=== PATIENT | male | born 1985 | race Caucasian/White ===

== ENCOUNTER 2020-12-27 07:30 | Emergency (ER) | payer SELFPAY ==
[2020-12-27 08:43] LABS: Absolute Lymphocytes (CBC) 1.5 K/uL (0.7-4.9); Basophils % 0.5 % (0-1.3); Hematocrit 45.5 % (39.6-49.0); Lymphocytes % 22.5 % (15.3-44.8); MPV 8.1 fL (7.6-11.3); RBC Red Blood Cell Count 5.12 M/uL (4.33-5.43)
[2020-12-27] MEDS ORDERED: ONDANSETRON 4 MG/2 ML VIAL ONE (08:43)
[2020-12-27] MEDS ORDERED: NA CHLORIDE 0.9% 1,000 ML ONE (08:43)
[2020-12-27 08:46] LABS: Potassium 3.8 mmol/L (3.5-5.1)
--- NOTE | 2020-12-27 09:22 | ER ---
Nurse's Notes [facility] Name: Rudolph Rizo Age: 35 yrs Sex: Male : 1985 Arrival Date: 12/27/2020 Time: 07:31 Bed 11 Private MD: Diagnosis: Heat exhaustion, unspecified Presentation: 12/27 07:46 Chief complaint: Patient states: generalized muscle cramps and fatigue that began ss yesterday after working outside all day. Pt believes he has heat stress. Coronavirus screen: Client denies travel out of the [place] in the last 14 days. Ebola Screen: Patient denies exposure to infectious person. Patient denies travel to an Ebola-affected area in the 21 days before illness onset. Initial Sepsis Screen: Does the patient meet any 2 criteria? No. Patient's initial sepsis screen is negative. Does the patient have a suspected source of infection? No. Patient's initial sepsis screen is negative. Risk Assessment: Do you want to hurt yourself or someone else? Patient reports no desire to harm self or others. Onset of symptoms was December 26, 2020. 07:46 Method Of Arrival: Ambulatory ss 07:46 Acuity: JENELLE 3 ss Historical: - Allergies: 07:47 Codeine; ss - Home Meds: 07:47 None [Active]; ss - PMHx: 07:47 None; ss - PSHx: 07:47 None; ss - Immunization history:: Client reports having NOT received the Covid vaccine. - Social history:: Smoking status: Patient reports the use of cigarette tobacco products, smokes one pack cigarettes per day. Screenin:48 Abuse screen: Denies threats or abuse. Denies injuries from another. Nutritional ss screening: No deficits noted. Tuberculosis screening: Never had TB. Fall Risk None identified. Assessment: 08:24 General: Appears in no apparent distress. uncomfortable, Behavior is calm, cooperative, jl7 appropriate for age. Vital Signs: 07:46 BP 136 / 82; Pulse 74; Resp 16; Temp 97.7(TE); Pulse Ox 100% on R/A; Weight 83.91 kg; ss Height 5 ft. 11 in. (180.34 cm); Pain 0/10; 07:46 Body Mass Index 25.80 (83.91 kg, 180.34 cm) ss ED Course: 07:31 Patient arrived in ED. ds1 07:46 Bradley Simon MD is Attending Physician. kdr 07:47 Triage completed. ss 07:47 Arm band placed on right wrist. ss 07:48 Patient has correct armband on for positive identification. ss 08:13 Rafia Plunkett, RN is Primary Nurse. jl7 09:38 No provider procedures requiring assistance completed. IV discontinued, intact, ss bleeding controlled, No redness/swelling at site. Pressure dressing applied. Administered Medications: 08:24 Drug: NS 0.9% 1000 ml Route: IV; Rate: 1 bolus; Site: left antecubital; jl7 09:37 Follow up: IV Status: Completed infusion; IV Intake: 1000ml ss 08:24 Drug: Zofran (Ondansetron) 4 mg Route: IVP; Site: left antecubital; hb 09:37 Follow up: Response: No adverse reaction ss Intake: 09:37 IV: 1000ml; Total: 1000ml. Outcome: 09:22 Discharge ordered by . kdr 09:38 Discharged to home ambulatory. ss 09:38 Condition: good 09:38 Discharge instructions given to patient, Instructed on discharge instructions, follow up and referral plans. Demonstrated understanding of instructions, follow-up care, Prescriptions given X 1. 09:38 Patient left the ED. Signatures: Bradley Simon MD MD [facility] Annmarie Love ds1 Cher Koch RN RN Arely Lopez RN RN Rafia Plunkett, YOLANDA RN jl7 Corrections: (The following items were deleted from the chart) 07:47 07:47 Allergies: No Known Allergies; ss ss
--- NOTE | 2020-12-27 09:23 | EDPHYS ---
Physician Documentation [facility] Name: Rudolph Rizo Age: 35 yrs Sex: Male : 1985 Arrival Date: 12/27/2020 Time: 07:31 Bed 11 Private MD: ED Physician Bradley Simon HPI: 12/27 08:15 This 35 yrs old Male presents to ER via Ambulatory with complaints of kdr Cramping all over- Poss Heat Stroke. 08:15 Patient states that he was working outside yesterday doing very strenuous activity. kdr About 4 years ago he had a similar episode of heat stroke. He states he feels similar to that episode. He states that since he had that experience, he has had more difficulty managing heat situations. Onset: The symptoms/episode began/occurred yesterday. Severity of symptoms: At their worst the symptoms were mild moderate just prior to arrival, in the emergency department the symptoms are unchanged. The patient has experienced a previous episode. The patient has not recently seen a physician. He states that yesterday he drank 1 large Gatorade and some water. Last evening he tried to drink a lot of fluid replenishment this morning still awoke with the cramping. Historical: - Allergies: 07:47 Codeine; ss - Home Meds: 07:47 None [Active]; ss - PMHx: 07:47 None; ss - PSHx: 07:47 None; ss - Immunization history:: Client reports having NOT received the Covid vaccine. - Social history:: Smoking status: Patient reports the use of cigarette tobacco products, smokes one pack cigarettes per day. ROS: 08:15 Constitutional: Negative for fever, chills, and weight loss, Eyes: Negative for injury, kdr pain, redness, and discharge, ENT: Negative for injury, pain, and discharge, Neck: Negative for injury, pain, and swelling, Cardiovascular: Negative for chest pain, palpitations, and edema, Respiratory: Negative for shortness of breath, cough, wheezing, and pleuritic chest pain, Abdomen/GI: Negative for abdominal pain, nausea, vomiting, diarrhea, and constipation, Back: Negative for injury and pain, : Negative for injury, bleeding, discharge, and swelling, Skin: Negative for injury, rash, and discoloration, Neuro: Negative for headache, weakness, numbness, tingling, and seizure activity. Psych: Negative for depression, anxiety, suicide ideation, homicidal ideation, and hallucinations, Allergy/Immunology: Negative for hives, rash, and allergies, Endocrine: Negative for neck swelling, polydipsia, polyuria, polyphagia, and marked weight changes, Hematologic/Lymphatic: Negative for swollen nodes, abnormal bleeding, and unusual bruising. 08:15 MS/extremity: Positive for Patient has generalized myalgias and arthralgias. Exam: 08:15 Constitutional: This is a well developed, well nourished patient who is awake, alert, kdr and in no acute distress. Head/Face: Normocephalic, atraumatic. Eyes: Pupils equal round and reactive to light, extra-ocular motions intact. Lids and lashes normal. Conjunctiva and sclera are non-icteric and not injected. Cornea within normal limits. Periorbital areas with no swelling, redness, or edema. Neck: Trachea midline, no thyromegaly or masses palpated, and no cervical lymphadenopathy. Supple, full range of motion without nuchal rigidity, or vertebral point tenderness. No Meningismus. Chest/axilla: Normal chest wall appearance and motion. Nontender with no deformity. No lesions are appreciated. Cardiovascular: Regular rate and rhythm with a normal S1 and S2. No gallops, murmurs, or rubs. Normal PMI, no JVD. No pulse deficits. Respiratory: Lungs have equal breath sounds bilaterally, clear to auscultation and percussion. No rales, rhonchi or wheezes noted. No increased work of breathing, no retractions or nasal flaring. Abdomen/GI: Soft, non-tender, with normal bowel sounds. No distension or tympany. No guarding or rebound. No evidence of tenderness throughout. Back: No spinal tenderness. No costovertebral tenderness. Full range of motion. Skin: Warm, dry with normal turgor. Normal color with no rashes, no lesions, and no evidence of cellulitis. MS/ Extremity: Pulses equal, no cyanosis. Neurovascular intact. Full, normal range of motion. Neuro: Awake and alert, GCS 15, oriented to person, place, time, and situation. Cranial nerves II-XII grossly intact. Motor strength 5/5 in all extremities. Sensory grossly intact. Cerebellar exam normal. Normal gait. Psych: Awake, alert, with orientation to person, place and time. Behavior, mood, and affect are within normal limits. Vital Signs: 07:46 BP 136 / 82; Pulse 74; Resp 16; Temp 97.7(TE); Pulse Ox 100% on R/A; Weight 83.91 kg; ss Height 5 ft. 11 in. (180.34 cm); Pain 0/10; 07:46 Body Mass Index 25.80 (83.91 kg, 180.34 cm) MDM: 08:15 Data reviewed: vital signs, nurses notes, lab test result(s). Counseling: I had a kdr detailed discussion with the patient and/or guardian regarding: the historical points, exam findings, and any diagnostic results supporting the discharge/admit diagnosis, lab results, the need for outpatient follow up. 09:22 Patient medically screened. kdr 12/27 08:06 Order name: CBC with Diff; Complete Time: 09:03 kdr 12/27 08:06 Order name: Chem 7; Complete Time: 09:03 kdr 12/27 08:06 Order name: CPK; Complete Time: 09:03 kdr Administered Medications: 08:24 Drug: NS 0.9% 1000 ml Route: IV; Rate: 1 bolus; Site: left antecubital; jl7 09:37 Follow up: IV Status: Completed infusion; IV Intake: 1000ml 08:24 Drug: Zofran (Ondansetron) 4 mg Route: IVP; Site: left antecubital; hb 09:37 Follow up: Response: No adverse reaction ss Disposition Summary: 12/27/20 09:22 Discharge Ordered Location: Home kdr Problem: new kdr Symptoms: have improved kdr Condition: Stable kdr Diagnosis - Heat exhaustion, unspecified kdr Followup: kdr - With: Private Physician - When: 2 - 3 days - Reason: If symptoms return, Further diagnostic work-up, Recheck today's complaints, Continuance of care, Re-evaluation by your physician Discharge Instructions: - Discharge Summary Sheet kdr - Heat Exhaustion kdr - Preventing Heat Exhaustion, Adult kdr Forms: - Medication Reconciliation Form kdr - Thank You Letter kdr - Work release form eb Prescriptions: - Zofran 4 mg Oral Tablet - take 1 tablet by ORAL route every 12 hours As needed; 12 tablet; Refills: 0, kdr Product Selection Permitted Signatures: Dispatcher [employer] EDWV Bradley Simon MD MD [facility] Cher Koch RN RN ss Arely Lopez RN RN Rafia Plunkett RN RN jl7 Corrections: (The following items were deleted from the chart) 07:47 07:47 Allergies: No Known Allergies; [facility]
[2020-12-27 09:44] VITALS: BP 136/82; TEMP 97.7; O2SAT 100
== END 2020-12-27 09:38 | disposition home or self-care (01) ==
LOC: ER 07:30
DX: T67.5XXA Heat exhaustion, unspecified, initial encounter (principal); F17.210 Nicotine dependence, cigarettes, uncomplicated; Z88.5 Allergy status to narcotic agent
CPT/HCPCS: 36415; 80048; 82550; 85025; 96361; 96374; 99283; J2405; J7030

== ENCOUNTER 2024-02-17 01:20 | Emergency (ER) | payer SELFPAY ==
[2024-02-17] MEDS ORDERED: KETOROLAC 30 MG/ML INJ ONE (02:16)
--- NOTE | 2024-02-17 04:06 | ER ---
Nurse's Notes [facility] Name: Rudolph Rizo Age: 38 yrs Sex: Male : 1985 Arrival Date: 02/17/2024 Time: 01:20 Bed 5 Private MD: Yosvany Reeder Diagnosis: Strain of muscle(s) and tendon(s) of the rotator cuff of left shoulder Presentation: 02/16 01:41 Chief complaint: Patient states: left shoulder pain X4 days and worsening. pain 7/10. Coronavirus screen: Client denies travel out of the [place] in the last 14 days. At this time, the client does not indicate any symptoms associated with coronavirus-19. Ebola Screen: No symptoms or risks identified at this time. Initial Sepsis Screen: Does the patient meet any 2 criteria? No. Patient's initial sepsis screen is negative. Does the patient have a suspected source of infection? No. Patient's initial sepsis screen is negative. Risk Assessment: Do you want to hurt yourself or someone else? Patient reports no desire to harm self or others. Onset of symptoms is unknown. 01:41 Method Of Arrival: Ambulatory 01:41 Acuity: JENELLE 4 Triage Assessment: 01:42 General: Appears in no apparent distress. comfortable, Behavior is calm, cooperative. Pain: Complains of pain in left shoulder Pain does not radiate. Pain currently is 7 out of 10 on a pain scale. EENT: No deficits noted. No signs and/or symptoms were reported regarding the EENT system. Neuro: No deficits noted. Emery Agitation-Sedation Scale (RASS): 0 - Alert and Calm Level of Consciousness is awake, alert, obeys commands, Oriented to person, place, time, situation. Cardiovascular: No deficits noted. Denies chest pain, shortness of breath, Capillary refill < 3 seconds Clubbing of nail beds is absent JVD is absent Patient's skin is warm and dry. Respiratory: No deficits noted. Airway is patent Respiratory effort is even, unlabored, Respiratory pattern is regular, symmetrical. GI: No deficits noted. No signs and/or symptoms were reported involving the gastrointestinal system. : No deficits noted. No signs and/or symptoms were reported regarding the genitourinary system. Derm: No deficits noted. No signs and/or symptoms reported regarding the dermatologic system. Skin is intact, is healthy with good turgor, Skin is dry, Skin is normal, Skin temperature is warm. Musculoskeletal: Circulation, motion, and sensation intact. Range of motion: intact in all extremities, Reports pain in left shoulder. Historical: - Allergies: :42 Codeine; kl - Home Meds: 01:42 None [Active]; kl - PMHx: 01:42 None; kl - PSHx: 01:42 None; kl - Immunization history:: Adult Immunizations up to date. - Infectious Disease History:: Denies. - Social history:: Smoking status: Patient reports the use of cigarette tobacco products, smokes one pack cigarettes per day. Patient uses alcohol, occasionally. Patient/guardian denies using street drugs. Screenin:02 [facility] ED Fall Risk Assessment (Adult) History of falling in the last 3 months, mt4 including since admission No falls in past 3 months (0 pts) Confusion or Disorientation No (0 pts) Intoxicated or Sedated Yes (3 pts) Impaired Gait Yes (1 pt) Mobility Assist Device Used No (0 pt) Altered Elimination No (0 pt) Score/Fall Risk Level 0 - 2 = Low Risk. Abuse screen: Denies injuries from another. Nutritional screening: No deficits noted. Tuberculosis screening: No symptoms or risk factors identified. Exposure risk/Travel Screening: None identified. Assessment: 02:02 General: Appears in no apparent distress. comfortable, well groomed, Behavior is calm, mt4 cooperative, appropriate for age. Pain: Complains of pain in left arm Pain does not radiate. Pain currently is 4 out of 10 on a pain scale. at worst was 7 out of 10 on a pain scale. Quality of pain is described as aching, sharp. Pain: Pain began gradually, Is intermittent. Neuro: Level of Consciousness is awake, alert, obeys commands, Oriented to person, place, time, situation, Edger Saw Operator are equal bilaterally Moves all extremities. Gait is steady, Speech is normal, Facial symmetry appears normal. Cardiovascular: Denies. Respiratory: Airway is patent Respiratory effort is even, unlabored, Respiratory pattern is regular. GI: No signs and/or symptoms were reported involving the gastrointestinal system. : No signs and/or symptoms were reported regarding the genitourinary system. Musculoskeletal: Reports pain in left shoulder since 3-4 days. 03:27 Reassessment: Patient appears in no apparent distress at this time. Patient and/or bm8 family updated on plan of care and expected duration. Pain level reassessed. Patient is alert, oriented x 3, equal unlabored respirations, skin warm/dry/pink. Patient states feeling better. Patient states symptoms have improved. Pain: Complains of pain in left shoulder Pain currently is 3 out of 10 on a pain scale. 04:24 Reassessment: Patient appears in no apparent distress at this time. Patient and/or bm8 family updated on plan of care and expected duration. Pain level reassessed. Patient is alert, oriented x 3, equal unlabored respirations, skin warm/dry/pink. Patient states feeling better. Patient states symptoms have improved. Vital Signs: 01:41 BP 142 / 82; Pulse 93; Resp 16 S; Temp 98.1(O); Pulse Ox 99% on R/A; Weight 77.11 kg kl (R); Height 5 ft. 11 in. (R); Pain 7/10; 02:02 BP 124 / 77; Pulse 77; Resp 16 S; Temp 99(O); Pulse Ox 100% on R/A; Pain 4/10; mt4 03:27 BP 118 / 76; Pulse 83; Resp 17; Temp 99; Pulse Ox 99% ; Pain 3/10; bm8 04:24 BP 131 / 84; Pulse 72; Resp 17; Temp 98.7; Pulse Ox 97% ; Pain 0/10; bm8 01:41 Body Mass Index 23.71 (77.11 kg, 180.34 cm) kl 01:41 Pain Scale: Adult kl 02:02 Pain Scale: Adult mt4 03:27 Pain Scale: Adult bm8 04:24 Pain Scale: Adult bm8 Duncan Coma Score: 02:02 Eye Response: spontaneous(4). Motor Response: obeys commands(6). Verbal Response: mt4 oriented(5). Total: 15. 03:27 Eye Response: spontaneous(4). Motor Response: obeys commands(6). Verbal Response: bm8 oriented(5). Total: 15. 04:24 Eye Response: spontaneous(4). Motor Response: obeys commands(6). Verbal Response: bm8 oriented(5). Total: 15. ED Course: 01:24 Patient arrived in ED. gm2 01:24 Yosvany Reeder MD is Private Physician. gm2 01:42 Triage completed. kl 01:42 Arm band placed on right wrist. kl 01:56 Gutierrez Goldsmiht, RN is Primary Nurse. mt4 02:02 No apparent distress. Resting quietly. Awaiting ED provider evaluation. mt4 02:02 Patient has correct armband on for positive identification. Bed in low position. Call mt4 light in reach. Side rails up X 1. Provided Education on: vitals . Client placed on continuous cardiac and pulse oximetry monitoring. NIBP monitoring applied. Pulse ox on. Door closed. Lights dimmed. Warm blanket given. Pillow given. Verbal reassurance given. Patient is placed in psych hold. Assisted to bathroom. 02:02 No provider procedures requiring assistance completed. Patient maintains SpO2 mt4 saturation greater than 95% on room air. 02:20 Soham Lipscomb MD is Attending Physician. bo1 02:40 XRAY Shoulder LEFT 2 view In Process Unspecified. EDMS 02:46 Patient did not have IV access during this emergency room visit. mt4 04:04 Jason Sal MD is Referral Physician. bo1 Administered Medications: 02:20 Drug: Ketorolac IM 30 mg IM once Route: IM; Site: right deltoid; mt4 02:45 Follow up: Response: No adverse reaction mt4 Medication: 02:02 VIS not applicable for this client. mt4 Outcome: 04:06 Discharge ordered by . bo1 04:24 Discharged to home ambulatory, bm8 04:24 Condition: stable 04:24 Discharge instructions given to patient, Instructed on discharge instructions, follow up and referral plans. Demonstrated understanding of instructions, follow-up care, medications, Prescriptions given X 1, 04:25 Patient left the ED. bm8 Signatures: Dispatcher [employer] EDMS Susanne Stanford, Nieves Amato RN gm2 Soham Lipscomb MD MD bo1 Rudolph Ovalles RN RN bm8 Gutierrez Goldsmith, YOLANDA RN mt4
--- NOTE | 2024-02-17 04:26 | EDPHYS ---
Physician Documentation [facility] Name: Rudolph Rizo Age: 38 yrs Sex: Male : 1985 Arrival Date: 02/17/2024 Time: 01:20 Bed 5 Private MD: Yosvany Reeder ED Physician Soham Lipscomb HPI: 02/16 04:08 This 38 yrs old Male presents to ER via Ambulatory with complaints of Shoulder Pain. bo1 04:13 The patient or guardian complains of decreased range of motion, pain, that is acute, bo1 spasm, stiffness, Pt had symptoms suddenly and persistent. left shoulder. Context: The patient experiences decreased range of motion, The patient reports no obvious deformity. Pt is unsure of the cause or event leading to sxs. Onset: The symptoms/episode began/occurred suddenly. Modifying factors: The symptoms are aggravated by movement, rotation of arm. Associated signs and symptoms: Pertinent positives: severe pain. Treatment prior to arrival includes: Pt is taking Advil and Tylenol. The patient has experienced a previous episode, Right shoulder same sxs in past seen Dr Doron MONTANEZ. Pt works for [employer]. Historical: - Allergies: 01:42 Codeine; kl - Home Meds: 01:42 None [Active]; kl - PMHx: 01:42 None; kl - PSHx: 01:42 None; kl - Immunization history:: Adult Immunizations up to date. - Infectious Disease History:: Denies. - Social history:: Smoking status: Patient reports the use of cigarette tobacco products, smokes one pack cigarettes per day. Patient uses alcohol, occasionally. Patient/guardian denies using street drugs. ROS: 04:15 Constitutional: Negative for fever, chills, and weight loss bo1 04:15 MS/extremity: Positive for decreased range of motion, pain, of the left shoulder, 04:15 Skin: Negative for rash, Exam: 04:16 Constitutional: This is a well developed, well nourished patient who is awake, alert, bo1 and in no acute distress. 04:16 Musculoskeletal/extremity: Extremities: grossly normal except: noted in the left shoulder: decreased ROM, pain, tenderness, 04:16 Skin: Appearance: Normal, no rash present. Vital Signs: 01:41 BP 142 / 82; Pulse 93; Resp 16 S; Temp 98.1(O); Pulse Ox 99% on R/A; Weight 77.11 kg kl (R); Height 5 ft. 11 in. (R); Pain 7/10; 02:02 BP 124 / 77; Pulse 77; Resp 16 S; Temp 99(O); Pulse Ox 100% on R/A; Pain 4/10; mt4 03:27 BP 118 / 76; Pulse 83; Resp 17; Temp 99; Pulse Ox 99% ; Pain 3/10; bm8 04:24 BP 131 / 84; Pulse 72; Resp 17; Temp 98.7; Pulse Ox 97% ; Pain 0/10; bm8 01:41 Body Mass Index 23.71 (77.11 kg, 180.34 cm) kl 01:41 Pain Scale: Adult kl 02:02 Pain Scale: Adult mt4 03:27 Pain Scale: Adult bm8 04:24 Pain Scale: Adult bm8 Tata Coma Score: 02:02 Eye Response: spontaneous(4). Motor Response: obeys commands(6). Verbal Response: mt4 oriented(5). Total: 15. 03:27 Eye Response: spontaneous(4). Motor Response: obeys commands(6). Verbal Response: bm8 oriented(5). Total: 15. 04:24 Eye Response: spontaneous(4). Motor Response: obeys commands(6). Verbal Response: bm8 oriented(5). Total: 15. MDM: 02:20 Medical Screening Exam initiated bo1 04:17 Differential diagnosis: tendonitis, Capsulitis. Data reviewed: vital signs, radiologic bo1 studies, plain films. ED course: Pt symptoms are better with the Toradol IM. 02/16 02:15 Order name: XRAY Shoulder LEFT 2 view lg3 Administered Medications: 02:20 Drug: Ketorolac IM 30 mg IM once Route: IM; Site: right deltoid; mt4 02:45 Follow up: Response: No adverse reaction mt4 Disposition Summary: 02/17/24 04:06 Discharge Ordered Notes: Location: Home bo1 Problem: new bo1 Symptoms: have improved bo1 Condition: Stable bo1 Diagnosis - Strain of muscle(s) and tendon(s) of the rotator cuff of left shoulder bo1 Followup: bo1 - With: Jason Sal MD - When: Upon discharge from the Emergency Department - Reason: Further diagnostic work-up, Recheck today's complaints, Continuance of care Discharge Instructions: - Discharge Summary Sheet bo1 - Rotator Cuff Tendinitis bo1 - Adhesive Capsulitis bo1 Forms: - Work release form lg3 - Medication Reconciliation Form bo1 - Antibiotic Education bo1 - Prescription Opioid Use bo1 - Patient Portal Instructions bo1 - Leadership Thank You Letter bo1 Prescriptions: - ketorolac 10 mg Oral tablet - take 1 tablet ORAL route 4 times per day for 5 days; 20 tablet; Refills: 0, bo1 Product Selection Permitted Signatures: Dispatcher [employer] EDSusanne Hodge RN RN kl Valentina Mendenhall RN RN lg3 Soham Lipscomb MD MD bo1 Gutierrez Goldsmith RN RN mt4 Corrections: (The following items were deleted from the chart) 02:16 02:16 Shoulder Left 2 View+RAD.[email or web address].[email or web address] ordered. EDTX EDMS
[2024-02-17 04:35] VITALS: BP 131/84; TEMP 98.7; O2SAT 97
--- NOTE | 2024-02-17 05:38 | RAD REPORT ---
EXAM: XR Left Shoulder Complete, 2 or More Views CLINICAL HISTORY: The patient is 38 years old and is Male; WEAKNESS TECHNIQUE: Two or more views of the left shoulder. COMPARISON: No relevant prior studies available. FINDINGS: BONES/JOINTS: Unremarkable. No acute fracture. No dislocation. SOFT TISSUES: Unremarkable. IMPRESSION: Normal left shoulder radiographs. Electronically signed by: Nicole Howe MD 02/17/2024 02:49 AM CDT RP Due to temporary technical issues with the PACS/MarkTend reporting system, reports are being farhan d by the in-house radiologist without review as a courtesy to ensure prompt reporting the interpreting radiologist is fully responsible for the content of the report. Transcribed Date/Time: 02/17/2024 5:38 AM
== END 2024-02-17 04:25 | disposition home or self-care (01) ==
LOC: ER 01:20
DX: S46.012A Strain of muscle(s) and tendon(s) of the rotator cuff of left shoulder, initial encounter (principal); F17.210 Nicotine dependence, cigarettes, uncomplicated
CPT/HCPCS: 96372; 99284